=== PATIENT | female | born 2000 | race Caucasian/White ===

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

== ENCOUNTER 2024-02-06 22:15 | Emergency (ER) | payer MEDICAID, SELFPAY ==
[2024-02-06 22:15] VITALS: BP 148/96; PULSE 119; RESP 18; TEMP 36.7; O2SAT 100; BMI 20.7
[2024-02-06 23:00] VITALS: BP 141/75; PULSE 85; O2SAT 98
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
[2024-02-07 02:07] VITALS: BP 139/71; PULSE 81; RESP 18; TEMP 36.7; O2SAT 98
[2024-02-07] MEDS: RHO(D) IMMUNE GLOBULIN 1,500 UNIT SYRINGE IM (02:10)
== END 2024-02-07 02:15 | disposition home or self-care (01) ==
PROVIDERS: Emergency Provider Emergency Medicine
DX: O9A.311 Physical abuse complicating pregnancy, first trimester (principal); S39.91XA Unspecified injury of abdomen, initial encounter; Z3A.11 11 weeks gestation of pregnancy; Y07.12 Biological mother, perpetrator of maltreatment and neglect; O26.891 Other specified pregnancy related conditions, first trimester
CPT/HCPCS: 86900; 86901; 96372; 99285; J2790

== ENCOUNTER 2024-03-09 16:13 | Outpatient (CLI) | payer MEDICAID, SELFPAY ==
--- NOTE | 2024-03-09 16:17 | US_ITS ---
PROCEDURE: US OB >= 14 WEEKS FETUS CLINICAL INDICATION: dates and viability COMPARISON: No exams were available for comparison FINDINGS: Transabdominal sonographic images of the pelvis were obtained. From her established due date she is 16 weeks 4 days. Single viable intrauterine gestation. Cephalic position. Placenta: Posterior fundalplacenta grade 1. There is an average amount of fluid. survey performed and was unremarkable on the submitted images as in PACS. No discrete anomalies identified on survey imaging by technologist. Active fetus. Three-vessel cord with satisfactory umbilical cord insertion. 4- chamber heart noted. Survey of brain & ventricles Unremarkable. Cerebellum, thalamus, choroid plexus, cisterna magna appear normal. Face and neck survey unremarkable. Profile, nasion, appeared normal. Diaphragm and chest views unremarkable. Abdomen: Stomach and bladder noted and satisfactory. Spine: Not completely imaged Both arms and legs noted. Amniotic Fluid: Adequate. MVP 3.57 cm. Measurements: Average ultrasound age 17weeks 1day. Estimated due date by ultrasound age 1208/16/2024. Estimated weight 176g BPD = 17weeks 3days HC = 17weeks 0 days AC = 17weeks 0 days FL = 17weeks 0 days Growth Percentile= 66Percent Heart Rate = 144bpm HC/AC is 1.2 FL/BPD is 0.63 FL/AC is 0.21 IMPRESSION: 1. Viable fetus in the cephalic presentation with a posterior fundal placenta grade 1. 2. There appears to be an anterior contraction during the exam. 3. The fluid is within normal limits. MVP 3.57 cm. 4. Limited anatomical scan appears normal. 5. Suggest repeat complete anatomical scan scan in 4 weeks. 6. biometry is consistent with the dates. 7. heart rate is in the normal range at 144 BPM. Dictated by: Lance Mohan MD 03/10/2024 09:31 Lance Mohan MD in [place] 03/10/2024 09:31
[2024-03-09 17:43] LABS: Basophils # 0.1 K/mm3 (0-0.2); Basophils % 0.6 % (0.1-2.0); Eosinophils # 0.1 K/mm3 (0.0-0.4); Eosinophils % 0.8 % (0.1-12.0); Hematocrit 36.9 % (37.0-47.0); Hemoglobin 12.7 g/dL (12.2-16.2); Lymphocytes # 2.3 K/mm3 (0.7-4.5); Mean Corpuscular HGB Conc 34.6 g/dL (31.8-35.4); Mean Corpuscular Hemoglobin 31.9 pg (27.0-31.2); Mean Corpuscular Volume 92.3 fl (81-99); Mean Platelet Volume 7.8 fl (7.4-10.4); Monocytes # 0.5 K/mm3 (0.1-1.0); Monocytes % 4.4 % (1.7-9.3); Neutrophils # 7.7 K/mm3 (1.8-7.8); Neutrophils % 72.1 % (37.0-80.0); Platelet Count 317 K/mm3 (142-424); Red Cell Distribution Width 14.3 % (11.5-17.5); White Blood Count 10.6 K/mm3 (4.8-10.8)
[2024-03-10 13:29] LABS: HIV (1&2) Antibody Rapid NONREACTIVE (NONREACTIVE)
[2024-03-11 07:37] LABS: HCV Ab Non Reactive (Non Reactive); Hepatitis B Surface Antigen Negative (Negative)
[2024-03-11 08:21] LABS: Rubella Antibodies, IgG 1.97 index (Immune >0.99)
[2024-03-11 12:38] LABS: Rapid Plasma Reagin Ab Titer Non Reactive titer (NonRea<1:1)
== END 2024-03-09 23:59 | disposition home or self-care (01) ==
PROVIDERS: Visit Provider Obstetrics & Gynecology
DX: O09.32 Supervision of pregnancy with insufficient antenatal care, second trimester (principal); O09.292 Supervision of pregnancy with other poor reproductive or obstetric history, second trimester; Z3A.16 16 weeks gestation of pregnancy
CPT/HCPCS: 36415; 76805; 85025; 86593; 86762; 86850; 86870; 87086; 87340

== ENCOUNTER 2024-03-22 17:36 | Outpatient (CLI) | payer MEDICAID, SELFPAY ==
[2024-03-22 17:43] VITALS: BMI 25.0
[2024-03-22 17:50] VITALS: BP 128/74; PULSE 90; RESP 18; TEMP 36.9; O2SAT 97; BMI 25.0
--- NOTE | 2024-03-22 17:55 | US_ITS ---
PROCEDURE INFORMATION: Exam: US , Limited Exam date and time: 03/22/2024 6:32 PM Age: 23 years old Clinical indication: Lmp or gestational age (in weeks): 18w 3d; Antepartum complications; Decreased movements; Fetus 1; ; Additional info: Decreased movement TECHNIQUE: Imaging protocol: Real-time ultrasound of the maternal uterus with image documentation. Exam focused on the clinical indication. COMPARISON: US OB >= 14 WEEKS FETUS 03/09/2024 4:10 PM FINDINGS: Gestation: Single intrauterine gestation. heart rate: 120 bpm presentation and position: Cephalic. Placenta: Posterior location. Grade 1. No retroplacental hemorrhage. Amniotic fluid (Qualitative): Adequate amniotic fluid for age. BIOMETRY: Gestational age (AUA): 18 weeks 0 days Estimated weight: 281 g (88th percentile) Biparietal diameter (BPD): 4.15 cm (58th percentile) Head circumference (HC): 15.45 cm (41st percentile) Abdominal circumference (AC): 14.24 cm (83 percentile) Femur length (FL): 2.94 cm (68th percentile) MATERNAL: Cervix: Measures 3.4 cm in length. IMPRESSION: Single live intrauterine gestation measuring 18 weeks 0 days. No acute findings.
[2024-03-22 18:06] LABS: Microscopic, Urine URINE MICROSCOPIC (MICROSCOPIC)
[2024-03-22 18:23] LABS: Appearance,Urine CLEAR (Clear); Bilirubin,Urine Negative (Negative); Blood, Urine TRACE-I (Negative); Color,Urine YELLOW (Yellow); Glucose,Urine (UA) Negative (Negative); Ketones,Urine TRACE (Negative); Leukocyte Esterase,Urine TRACE (Negative); Nitrate,Urine Negative (Negative); Protein,Urine Negative (Negative); Urobilinogen,Urine 0.2 EU/dl (0.2)
[2024-03-22 18:43] LABS: Bacteria,Urine Trace /lpf; RBC,Urine Occasional #/hpf (0-3); WBC,Urine Occasional #/hpf (0-3)
[2024-03-22 18:51] LABS: Amphetamine/Metha Screen,Urine Negative ng/ml (<1000); Barbiturates Screen,Urine Negative ng/ml (<200)
[2024-03-22 18:52] LABS: Benzodiazepines Screen,Urine Negative ng/ml (<200)
[2024-03-22 18:53] LABS: Cannabinoid Screen,Urine Negative ng/ml (<50); Cocaine Screen,Urine Negative ng/ml (<300)
[2024-03-22 18:54] LABS: Methadone Screen,Urine Negative ng/ml (<300)
[2024-03-22 18:55] LABS: Opiate Screen,Urine Negative ng/ml (<300); Phencyclidine Screen,Urine Negative ng/ml (<25)
[2024-03-22 19:10] LABS: Fetal Membrane Rupture (Rapid) Negative (Negative)
== END 2024-03-22 19:45 | disposition home or self-care (01) ==
LOC: OBOUT 17:37 → OB 17:38
PROVIDERS: Visit Provider Obstetrics & Gynecology
DX: O42.912 Preterm premature rupture of membranes, unspecified as to length of time between rupture and onset of labor, second trimester (principal); O36.8320 Maternal care for abnormalities of the fetal heart rate or rhythm, second trimester, not applicable or unspecified; Z3A.18 18 weeks gestation of pregnancy
CPT/HCPCS: 76815; 80307; 81001; 84112

== ENCOUNTER 2024-04-12 15:42 | Outpatient (CLI) | payer MEDICAID, SELFPAY ==
--- NOTE | 2024-04-12 15:43 | US_ITS ---
PROCEDURE: US OB /MATERNAL DETAIL CLINICAL INDICATION: 20 wk OB US Complete COMPARISON: US US OB >= 14 WEEKS FETUS from 03/09/2024 US US OB LIMITED POSITION from 03/22/2024 FINDINGS: Transabdominal sonographic images of the pelvis were obtained. From her established due date she is 21 weeks 3 days. Single viable intrauterine gestation. Breech position. Placenta: Posteriorplacenta grade 1. There are several placental lakes. There is an average amount of fluid. The cervix appears satisfactory. Closed and measuring 3.2 cm in length. Complete survey performed and was unremarkable on the submitted images as in PACS. No discrete anomalies identified on survey imaging by technologist. Active fetus. Three-vessel cord with satisfactory umbilical cord insertion. 4- chamber heart noted. Situs, aortic arch, LVOT, RVOT, three-vessel view appear normal. Survey of brain & ventricles Unremarkable. Cerebellum, thalamus, choroid plexus, cisterna magna appear normal. Face and neck survey unremarkable. Profile, nasion, lips and nose appeared normal. Diaphragm and chest views unremarkable. Abdomen: Both kidneys noted and unremarkable. There is mild bilateral renal pelvis dilation measuring 3.6 mm and 2.9 mm. No further follow-up necessary. Stomach and bladder noted and satisfactory. Spine: Survey of the spine satisfactory with no anomalies identified nor imaged. Cervical, thoracic, lower spine appear normal. Both arms and legs noted. Amniotic Fluid: Adequate. MVP 5.14 cm. Measurements: Average ultrasound age 22weeks 1day. Estimated due date by ultrasound age 1208/15/2024. Estimated weight 453g BPD = 22weeks 3days HC = 22weeks 1day AC = 22weeks FL = 21weeks 4days Growth Percentile= 64 Heart Rate = 144bpm Cerebellum = 22weeks Humerus = 21weeks 4days HC/AC is 1.17 FL/BPD is 0.67 FL/AC is 0.21 IMPRESSION: 1. Viable fetus in the breech presentation with a posterior placenta grade 1. 2. The fluid is within normal limits. MVP 5.14 cm. 3. Anatomical scan appears normal. There is mild bilateral renal pelvis dilation less than 4 mm. 4. biometry is consistent with the dates. Dictated by: Lance Mohan MD 04/12/2024 16:41 aLnce Mohan MD in [place] 04/12/2024 16:41
== END 2024-04-12 23:59 | disposition home or self-care (01) ==
LOC: RAD 15:43
PROVIDERS: PCP Obstetrics & Gynecology; Visit Provider Obstetrics & Gynecology
DX: Z36.3 Encounter for antenatal screening for malformations (principal); O09.292 Supervision of pregnancy with other poor reproductive or obstetric history, second trimester; O09.32 Supervision of pregnancy with insufficient antenatal care, second trimester; Z3A.21 21 weeks gestation of pregnancy
CPT/HCPCS: 76811

== ENCOUNTER 2024-07-11 13:59 | Outpatient (CLI) | payer MEDICAID, SELFPAY ==
[2024-07-11 14:39] LABS: Albumin Level 3.5 g/dl (3.5-5.0); Chloride 107 mmol/L (98-107); Potassium 3.4 mmoL/L (3.5-5.1); Sodium 135 mmol/L (136-145)
[2024-07-11 14:40] LABS: Basophils % 0.4 % (0.1-2.0); Eosinophils # 0.1 K/mm3 (0.0-0.4); Eosinophils % 0.9 % (0.1-12.0); Hematocrit 33.4 % (37.0-47.0); Hemoglobin 11.5 g/dL (12.2-16.2); Lymphocytes # 2.1 K/mm3 (0.7-4.5); Lymphocytes % 26.6 % (10-50); Mean Corpuscular HGB Conc 34.3 g/dL (31.8-35.4); Mean Corpuscular Hemoglobin 29.3 pg (27.0-31.2); Mean Corpuscular Volume 85.4 fl (81-99); Mean Platelet Volume 7.7 fl (7.4-10.4); Monocytes # 0.4 K/mm3 (0.1-1.0); Monocytes % 5.1 % (1.7-9.3); Neutrophils # 5.4 K/mm3 (1.8-7.8); Neutrophils % 67.1 % (37.0-80.0); Platelet Count 291 K/mm3 (142-424); Red Blood Count 3.91 M/mm3 (4.20-5.40); Red Cell Distribution Width 13.9 % (11.5-17.5)
[2024-07-11 14:42] LABS: Alanine Aminotransferase 18 U/L (12-78); Albumin/Globulin Ratio 1.2 (1.1-1.8); Alkaline Phosphatase 118 U/L (38-126); Anion Gap 14.4 mEq/L (5-15); Aspartate Amino Transferase 25 U/L (14-36); Bilirubin,Total 0.6 mg/dl (0.2-1.3); Blood Urea Nitrogen 3 mg/dl (7-17); Calcium 8.7 mg/dl (8.4-10.2); Carbon Dioxide 17 mmol/L (22.0-30.0); Estimated Glomerular Filt Rate 154 ml/min (>60); GFR (African American) 187 ML/MIN (>60); Globulin 2.9 g/dL (1.3-3.2); Glucose 129 mg/dl (74-100); Total Protein,Serum 6.4 g/dl (6.3-8.2)
[2024-07-11 14:43] LABS: Magnesium 1.5 mg/dl (1.6-2.3)
[2024-07-12 15:08] LABS: RPR W/RFX Titers Nonreactive (Nonreactive)
== END 2024-07-11 23:59 | disposition home or self-care (01) ==
LOC: LAB 14:01
PROVIDERS: Visit Provider Obstetrics & Gynecology
DX: Z34.90 Encounter for supervision of normal pregnancy, unspecified, unspecified trimester (principal)
CPT/HCPCS: 36415; 80053; 83735; 85025; 86592

== ENCOUNTER 2024-07-19 14:54 | Outpatient (CLI) | payer MEDICAID, SELFPAY ==
--- NOTE | 2024-07-19 14:56 | US_ITS ---
PROCEDURE: US OB BIOPHYSICAL PROFILE CLINICAL INDICATION: LGA COMPARISON: US US OB >= 14 WEEKS FETUS from 03/09/2024 US US OB LIMITED POSITION from 03/22/2024 US US OB /MATERNAL DETAIL from 04/12/2024 FINDINGS: Transabdominal sonographic images of the uterus were obtained. From her established due date she is 35weeks 3days. The following parameters are obtained: Viable Fetus in the cephalic presentation with a posterior placenta grade 2. Average ultrasound age is 36weeks 2days Estimated weight 3,044g, 6 lb 11 oz Cervix measures 4.2 cm Measurements: heart Rate = 136bpm BPD = 35weeks 1day, 46 percentile HC = 36weeks 5days, 48 percentile AC = 38weeks 0 days, >98 percentile FL = 35weeks 1day, 36 percentile HC/AC is 0.95 FL/BPD is 0.79 FL/AC is 0.2 85 percentile Amniotic fluid index: 18.54cm, MVP 6.94 cm Qualitative AFV:2 Breathing movements: 2 Gross Body Movements: 2 Tone: 2 Biophysical profile score: 8 No obvious anomalies evident.Kidneys, profile, stomach, bladder, four-chamber heart, three-vessel cord appear normal. IMPRESSION: 1. Viable fetus in the cephalic presentation with a posterior placenta grade 2. 2. The fluid is within normal limits with an amniotic fluid index 18.54 cm, MVP 6.94 cm. 3. Biophysical profile is 8/8 with good breathing and movement seen. 4. Limited anatomical scan appears normal. 5. There has been good interval growth with the fetus currently 85 percentile. 6. The abdominal circumference is greater than 98 percentile and it is 2-1/2 weeks ahead. Dictated by: Lance Mohan MD 07/20/2024 04:28 Lance Mohan MD in [place] 07/20/2024 04:28
== END 2024-07-19 23:59 | disposition home or self-care (01) ==
LOC: RAD 14:56
PROVIDERS: PCP Obstetrics & Gynecology; Visit Provider Obstetrics & Gynecology
DX: O36.63X0 Maternal care for excessive fetal growth, third trimester, not applicable or unspecified (principal); O09.293 Supervision of pregnancy with other poor reproductive or obstetric history, third trimester; Z3A.35 35 weeks gestation of pregnancy
CPT/HCPCS: 76816; 76819

== ENCOUNTER 2024-07-20 16:25 | Outpatient (CLI) | payer MEDICAID, SELFPAY ==
[2024-07-20 18:42] LABS: Glucose 1 Hour 103 mg/dL (74-100)
== END 2024-07-20 23:59 | disposition home or self-care (01) ==
LOC: LAB.DROPOF 07-21 10:37
PROVIDERS: PCP Obstetrics & Gynecology; Visit Provider Obstetrics & Gynecology
DX: Z34.90 Encounter for supervision of normal pregnancy, unspecified, unspecified trimester (principal); Z3A.20 20 weeks gestation of pregnancy
CPT/HCPCS: 82947; 87086

== ENCOUNTER 2024-07-27 15:37 | Outpatient (CLI) | payer MEDICAID, SELFPAY ==
--- NOTE | 2024-07-27 15:39 | US_ITS ---
PROCEDURE: US OB BIOPHYSICAL PROFILE CLINICAL INDICATION: Decreased Movement COMPARISON: US POINT OF CARE US (ER ONLY) from 02/07/2024 US US OB >= 14 WEEKS FETUS from 03/09/2024 US US OB LIMITED POSITION from 03/22/2024 US US OB /MATERNAL DETAIL from 04/12/2024 US US OB BIOPHYSICAL PROFILE from 07/19/2024 FINDINGS: Transabdominal sonographic images of the uterus were obtained. From her established due date she is 36weeks 4days. The following parameters are obtained: Viable Fetus in the cephalic presentation with a posterior placenta grade 2. Measurements: heart Rate = 135bpm Amniotic fluid index: 9.4cm, MVP 2.54cm Qualitative AFV:2 Breathing movements: 2 Gross Body Movements: 2 Tone: 2 Biophysical profile score: 8 No obvious anomalies evident.Kidneys, stomach, bladder, four-chamber heart, three-vessel cord appear normal. IMPRESSION: 1. Viable fetus in the cephalic presentation with a posterior placenta grade 2. 2. The fluid is within normal limits with an amniotic fluid index 9.4 cm, MVP 2.54 cm. 3. Biophysical profile is 8 out of 8 with good breathing and movement seen. 4. Limited anatomical scan appears normal. 5. The bladder was distended throughout the entire exam. Dictated by: Lance Mohan MD 07/28/2024 03:27 Lance Mohan MD in [place] 07/28/2024 03:27
== END 2024-07-27 23:59 | disposition home or self-care (01) ==
LOC: RAD 15:37
PROVIDERS: Visit Provider Obstetrics & Gynecology
DX: O36.8130 Decreased fetal movements, third trimester, not applicable or unspecified (principal); O09.293 Supervision of pregnancy with other poor reproductive or obstetric history, third trimester; O09.33 Supervision of pregnancy with insufficient antenatal care, third trimester; Z3A.36 36 weeks gestation of pregnancy
CPT/HCPCS: 76819; 86403

== ENCOUNTER 2024-08-04 21:46 | Outpatient (CLI) | payer MEDICAID, SELFPAY ==
[2024-08-04 22:22] VITALS: BP 134/84; PULSE 92; RESP 18; TEMP 36.8; O2SAT 98; BMI 27.3
[2024-08-04 22:30] LABS: Microscopic, Urine URINE MICROSCOPIC (MICROSCOPIC)
[2024-08-04 23:53] LABS: Bilirubin,Urine Negative (Negative); Blood, Urine Negative (Negative); Color,Urine YELLOW (Yellow); Glucose,Urine (UA) Negative (Negative); Ketones,Urine Negative (Negative); Leukocyte Esterase,Urine 2+ (Negative); Nitrate,Urine Negative (Negative); Protein,Urine Negative (Negative); Urobilinogen,Urine 0.2 EU/dl (0.2)
[2024-08-04 23:54] LABS: Appearance,Urine Cloudy (Clear)
[2024-08-04 23:56] LABS: Bacteria,Urine 2+ /lpf
[2024-08-05 00:02] LABS: Amphetamine/Metha Screen,Urine Negative ng/ml (<1000); Barbiturates Screen,Urine Negative ng/ml (<200)
[2024-08-05 00:03] LABS: Benzodiazepines Screen,Urine Negative ng/ml (<200); Cannabinoid Screen,Urine Negative ng/ml (<50)
[2024-08-05 00:04] LABS: Cocaine Screen,Urine Negative ng/ml (<300)
[2024-08-05 00:05] LABS: Methadone Screen,Urine Negative ng/ml (<300); Opiate Screen,Urine Negative ng/ml (<300)
[2024-08-05 00:06] LABS: Phencyclidine Screen,Urine Negative ng/ml (<25)
[2024-08-05 00:14] LABS: POC Glucose,Bedside 72 (70-110)
[2024-08-05] MEDS: LACTATED RINGERS 1000ML 1,000 ML 999 ML IV (02:51)
[2024-08-05] MEDS: ACETAMINOPHEN 325MG TAB 650 MG PO (02:54)
== END 2024-08-05 08:06 | disposition home or self-care (01) ==
LOC: OBOUT 21:48 → OB 21:49
PROVIDERS: Visit Provider Obstetrics & Gynecology
DX: O60.03 Preterm labor without delivery, third trimester (principal); Z3A.37 37 weeks gestation of pregnancy
CPT/HCPCS: 80307; 81001; 82962; 87086; J7120

== ENCOUNTER 2024-08-12 17:32 | Outpatient (CLI) | payer MEDICAID, SELFPAY ==
[2024-08-12 17:35] VITALS: BMI 27.4
[2024-08-12 17:59] VITALS: BMI 27.4
[2024-08-12 17:59] LABS: Microscopic, Urine URINE MICROSCOPIC (MICROSCOPIC)
[2024-08-12 18:04] LABS: Appearance,Urine CLEAR (Clear); Bilirubin,Urine Negative (Negative); Blood, Urine Negative (Negative); Color,Urine YELLOW (Yellow); Glucose,Urine (UA) Negative (Negative); Ketones,Urine Negative (Negative); Leukocyte Esterase,Urine 1+ (Negative); Nitrate,Urine Negative (Negative); Protein,Urine Negative (Negative); Specific Gravity, Urine 1.015 (1.005-1.030); Urobilinogen,Urine 0.2 EU/dl (0.2)
[2024-08-12 18:13] LABS: Barbiturates Screen,Urine Negative ng/ml (<200)
[2024-08-12 18:14] LABS: Benzodiazepines Screen,Urine Negative ng/ml (<200)
[2024-08-12 18:15] VITALS: BP 133/88
[2024-08-12 18:15] LABS: Amphetamine/Metha Screen,Urine Negative ng/ml (<1000)
[2024-08-12 18:16] LABS: Cannabinoid Screen,Urine Negative ng/ml (<50)
[2024-08-12 18:17] LABS: Cocaine Screen,Urine Negative ng/ml (<300); Methadone Screen,Urine Negative ng/ml (<300)
[2024-08-12 18:18] LABS: Opiate Screen,Urine Negative ng/ml (<300); Phencyclidine Screen,Urine Negative ng/ml (<25)
[2024-08-12 18:41] LABS: Bacteria,Urine 3+ /lpf
[2024-08-12 18:45] VITALS: BP 125/78
[2024-08-12 19:00] VITALS: BP 144/83
[2024-08-12 19:30] VITALS: BP 105/78
[2024-08-12] MEDS: ACETAMINOPHEN 325MG TAB 650 MG PO (19:54)
== END 2024-08-12 20:00 | disposition home or self-care (01) ==
LOC: OBOUT 17:33 → OB 17:33
PROVIDERS: Visit Provider Obstetrics & Gynecology
DX: O60.03 Preterm labor without delivery, third trimester (principal); Z3A.38 38 weeks gestation of pregnancy
CPT/HCPCS: 80307; 81001; 87086; G0463

== ENCOUNTER 2024-08-15 22:13 | Inpatient (IN) | payer MEDICAID, SELFPAY ==
[2024-08-15 22:20] VITALS: BMI 27.4
[2024-08-15 22:29] VITALS: BP 140/75; PULSE 82; RESP 17; TEMP 36.8; O2SAT 99
[2024-08-15 22:34] VITALS: BMI 27.6
[2024-08-15 23:06] LABS: Basophils # 0.1 K/mm3 (0-0.2); Basophils % 0.4 % (0.1-2.0); Eosinophils # 0.1 K/mm3 (0.0-0.4); Eosinophils % 0.8 % (0.1-12.0); Hematocrit 29.9 % (37.0-47.0); Hemoglobin 9.9 g/dL (12.2-16.2); Lymphocytes # 2.7 K/mm3 (0.7-4.5); Lymphocytes % 22.3 % (10-50); Mean Corpuscular HGB Conc 33.1 g/dL (31.8-35.4); Mean Corpuscular Hemoglobin 27.3 pg (27.0-31.2); Mean Corpuscular Volume 82.4 fl (81-99); Monocytes # 0.9 K/mm3 (0.1-1.0); Monocytes % 7.5 % (1.7-9.3); Neutrophils # 8.1 K/mm3 (1.8-7.8); Neutrophils % 68.2 % (37.0-80.0); Platelet Count 282 K/mm3 (142-424); Red Blood Count 3.63 M/mm3 (4.20-5.40); Red Cell Distribution Width 13.1 % (11.5-17.5); White Blood Count 11.9 K/mm3 (4.8-10.8)
[2024-08-15 23:08] LABS: Albumin Level 3.4 g/dl (3.5-5.0); Chloride 108 mmol/L (98-107); Sodium 133 mmol/L (136-145)
[2024-08-15 23:09] LABS: Potassium 3.5 mmoL/L (3.5-5.1)
[2024-08-15 23:11] LABS: Alanine Aminotransferase 15 U/L (12-78); Albumin/Globulin Ratio 1.3 (1.1-1.8); Alkaline Phosphatase 156 U/L (38-126); Anion Gap 9.5 mEq/L (5-15); Aspartate Amino Transferase 24 U/L (14-36); Bilirubin,Total 0.4 mg/dl (0.2-1.3); Blood Urea Nitrogen 5 mg/dl (7-17); Carbon Dioxide 19 mmol/L (22.0-30.0); Creatinine Clearance Estimated 199 mL/min (50-200); Estimated Glomerular Filt Rate 200 ml/min (>60); GFR (African American) 242 ML/MIN (>60); Globulin 2.6 g/dL (1.3-3.2); Glucose 87 mg/dl (74-100)
[2024-08-15 23:12] LABS: Calcium 8.6 mg/dl (8.4-10.2)
[2024-08-15] MEDS: ONDANSETRON 4MG/2ML VIAL 4 MG IV (23:26)
[2024-08-15] MEDS: ACETAMINOPHEN 325MG TAB 650 MG PO (23:28)
[2024-08-16] MEDS: LACTATED RINGERS 1000ML 1,000 ML 250 ML IV (03:44)
[2024-08-16] MEDS: OXYTOCIN/RINGERS LACTATE 30 UNITS/500 ML BAG IV (03:44)
[2024-08-16] MEDS: DEXTROSE 5%-LACTATED RINGERS 1,000 ML 125 ML IV (03:50)
--- NOTE | 2024-08-16 05:51 | EXP.ANES.CKL ---
[facility] Disclaimer: The information contained in this section may have been updated after the patient was seen, as this information can be updated by other users. Medical History Hx of reduction of open dislocation Hx of anxiety disorder History of depression Surgical History History of surgery on arm Family History Other Cancer Diabetes Hypertension Social History Smoking Status: Never smoker alcohol intake: never substance use type: denies use current occupational status: unemployed Travel in the last 8 weeks: None [facility] Anesthesia Checklist Patient Identification Patient Identification: Arm Band Structural Data Admitted From: Home Planned Operative Procedure/s: Labor Epidural Consent for Planned Operative Procedure(s) Verified: Yes Verified Documents: Surgical Consent and History and Physical NPO Status Verified Time NPO: 00:00 Additional verifications Anesthesia Reactions: No Neurological Assessment Level of Consciousness: Awake, Alert and Appropriate Anesthesia Plan Anesthesia Risk discussed: Yes Anesthesia Plan: Verified ASA Class: II Anesthesia Type: Epidural
--- NOTE | 2024-08-16 06:08 | EXP.HP ---
History of Present Illness *Admission Date: 08/15/24 *Reason for visit:: Labor *History of present illness: Alma Remy is a 24-year-old who presented at 39w1d gestation with a migraine. She was scheduled for an elective IOL at 39w2d. Her has been uncomplicated. On presentation patient endorsed good movement and denies any leakage of fluid or vaginal bleeding. A negative, antibody positive: Pending antibody, rubella immune, hepatitis B negative, hepatitis C negative, RPR negative, HIV negative 1 hour GTT: 103 GBS negative PFSH PFS Disclaimer: The information contained in this section may have been updated after the patient was seen, as this information can be updated by other users. Medical History Hx of reduction of open dislocation Hx of anxiety disorder History of depression Surgical History History of surgery on arm Family History Other Cancer Diabetes Hypertension Social History (Updated 08/16/24 @ 05:52 by Spencer Dunaway CRNA) Smoking Status: Never smoker alcohol intake: never substance use type: denies use current occupational status: unemployed Travel in the last 8 weeks: None Have you lived/traveled outside [place] in past 30 days?: No Contact w/someone who lives/traveled outside US past 30 days?: No Exposure to someone with infectious disease in past 14 days?: No Do you have a fever (greater than 100.4 F or 38 C)?: No Have you tested positive for COVID-19: No Exposed to someone with COVID-19 in past 14 days?: No Do you have a sore throat?: No Do you have a cough?: No Do you have any weakness?: No Do you have any diarrhea?: No Are you experiencing any unusual bleeding?: No Do you have any muscle aches/pain?: No Do you have any abdominal pain?: No Are you experiencing loss of taste or smell?: No Other Medical History Have you received the Flu Vaccine for this season: No Have you received the Pneumonia Vaccine: No Review of Systems Review of Systems Review of systems (narrative): Review of Systems Constitutional: Denies fever, chills, and sweats Eyes: Denies vision change/ pain Respiratory: Denies cough and shortness of breath Cardiovascular: Denies chest pain and lightheadedness Gastrointestinal: Admits abdominal pain with contractions. Denies nausea, vomiting. Genitourinary: Denies dysuria and incontinence Musculoskeletal: Denies shoulder pain and back pain Neurological: Denies change in speech or headaches Meds Home Medications and Allergies Home Medications ?Medication ?Instructions ?Recorded ?Confirmed ?Type vits no.126-ferrous fum 1 tab PO DAILY #30 tabs 04/07/24 08/12/24 Rx 28 mg iron-folic acid 800 mcg tablet (Classic ) New Prescriptions to Start Prescriptions: Allergies Allergy/AdvReac Type Severity Reaction Status Date / Time venom-honey bee (BEE VENOM Allergy Unknown Verified 08/12/24 15:23 (HONEY BEE)) venom-wasp (WASP VENOM) Allergy Unknown Verified 08/12/24 15:23 Exam Data for Last 24 hours Vital signs and Labs for Last 24 Hours: Temp Pulse Resp BP Pulse Ox O2 Del Method 98.2 F 82 17 140/75 99 Room Air 08/15/24 22:29 08/15/24 22:29 08/15/24 22:29 08/15/24 22:29 08/15/24 22:29 08/15/24 22:29 Laboratory Results - last 24 hr 08/15/24 22:50: WBC 11.9 H, RBC 3.63 L, Hgb 9.9 L, Hct 29.9 L, MCV 82.4, MCH 27.3, MCHC 33.1, RDW 13.1, Plt Count 282, MPV 10.0, Neut % (Auto) 68.2, Lymph % (Auto) 22.3, Taliaferro % (Auto) 7.5, Eos % (Auto) 0.8, Baso % (Auto) 0.4, Neut # (Auto) 8.1 H, Lymph # (Auto) 2.7, Taliaferro # (Auto) 0.9, Eos # (Auto) 0.1, Baso # (Auto) 0.1, Sodium 133 L, Potassium 3.5, Chloride 108 H, Carbon Dioxide 19 L, Anion Gap 9.5, BUN 5 L, Creatinine 0.40 L, Estimated Creat Clear 199, Estimated GFR 200, Est GFR ( Amer) 242, Glucose 87, Calcium 8.6, Total Bilirubin 0.4, AST 24, ALT 15, Alkaline Phosphatase 156 H, Total Protein 6.0 L, Albumin 3.4 L, Globulin 2.6, Albumin/Globulin Ratio 1.3, Blood Type A Negative, Antibody Screen Positive I & O for Last 24 hours: Intake & Output 08/13/24 08/14/24 08/15/24 08/16/24 23:59 23:59 23:59 23:59 Weight 363 lb 12.203 oz Narrative: General: patient is alert oriented in no acute distress and responds appropriately to questions. HEENT: NCAT, EOMI, moist mucous membranes, neck supple with full ROM Cardiovascular: RRR +S1/S2, no murmurs or rubs Pulmonary: Clear to auscultation bilaterally, nonlabored breathing, symmetric chest rise Abdominal: Gravid abdomen appropriate for gestation. No guarding, rebound, or tenderness noted. Extremities: trace edema, no tenderness or cyanosis noted Skin: Normal turgor, intact, warm. Negative for erythema, pallor, petechia, or lesions Neurologic: Negative for sensory or motor deficit Psychiatric: Normal affect, normal thought process, good judgment and insight, no depression or anxious mood appreciated. *Routine HEENT Exam Head: Present normocephalic and atraumatic Eye: Present EOMI, PERRL and normal accommodation; Absent conjunctival icterus, scleral injection, nystagmus or exophthalmos ENT: Present mucous membranes moist *Routine Respiratory Exam Respiratory: Present CTA bilaterally, normal respiratory effort, able to speak in complete sentences and symmetric chest movement; Absent accessory muscle use, decreased breath sounds, rales, respiratory distress, wheezes, distant breath sounds or diminished air movement *Routine Cardiovascular Exam Cardiovascular: Present RRR, Normal S1 and Normal S2; Absent murmur or gallop *Routine Abdominal Exam Abdominal: Present soft and normoactive bowel sounds; Absent tenderness, distended, rebound or guarding *Routine Rectal Exam Rectal:: deferred *Routine Genitalia Exam Genitalia:: normal female Assessment and Plan *Assessment and plan (1) Hx of preeclampsia, prior , currently : Status: Acute Category: Medical Code(s): O09.299 - Supervision of with other poor reproductive or obstetric history, unspecified trimester (2) : Status: Acute Qualifiers: Weeks of gestation: 20 weeks Qualified Code(s): Z3A.20 - 20 weeks gestation of Category: Medical Code(s): Z34.90 - Encounter for supervision of normal , unspecified, unspecified trimester Plan - Monitor vitals - Admit to L&D for induction of labor - Plan for augmentation of labor with AROM and pitocin if required. - External FHR and TOCO monitor - GBS neg - Plan for epidural anesthesia - Anticipate vaginal delivery of female #Anemia, present on admission. likely chronic -Normocytic -Blood type: A- -Hemoglobin: 9.9, Plt: 282 #Migraine on admission #Hxof preeclampsia -Continue close monitoring -Migraine resolved this morning Called in for evaluation at 0545, AROM completed- thick meconium. 1. Cat one strip reviewed.
[2024-08-16 06:15] LABS: Microscopic, Urine URINE MICROSCOPIC (MICROSCOPIC)
[2024-08-16 06:16] LABS: Appearance,Urine CLEAR (Clear); Bilirubin,Urine Negative (Negative); Blood, Urine Negative (Negative); Color,Urine YELLOW (Yellow); Glucose,Urine (UA) Negative (Negative); Ketones,Urine Negative (Negative); Leukocyte Esterase,Urine 3+ (Negative); Nitrate,Urine Negative (Negative); Protein,Urine Negative (Negative); Urobilinogen,Urine 0.2 EU/dl (0.2)
[2024-08-16 06:24] LABS: Bacteria,Urine 1+ /lpf; WBC,Urine 20-50 #/hpf (0-3)
[2024-08-16 06:25] LABS: Mucus,Urine Trace /lpf
[2024-08-16 06:27] LABS: Barbiturates Screen,Urine Negative ng/ml (<200)
[2024-08-16 06:28] LABS: Amphetamine/Metha Screen,Urine Negative ng/ml (<1000); Benzodiazepines Screen,Urine Negative ng/ml (<200)
[2024-08-16 06:29] LABS: Cannabinoid Screen,Urine Negative ng/ml (<50); Cocaine Screen,Urine Negative ng/ml (<300)
[2024-08-16 06:30] LABS: Methadone Screen,Urine Negative ng/ml (<300)
[2024-08-16 06:31] LABS: Opiate Screen,Urine Negative ng/ml (<300); Phencyclidine Screen,Urine Negative ng/ml (<25)
--- NOTE | 2024-08-16 06:58 | EXP.DN ---
Delivery Note Delivery Date:: 08/16/24 Delivery Time:: 06:28 Anesthesia Type: Epidural Was labor medically induced?: Yes Induction method: per pitocin protocol Gestational age (weeks): 39 delivered prior to 39 weeks?: No Infant Gender: Female at 1 minute: 7 at 5 minutes: 8 Delivery Procedure:: Preoperative diagnosis: 1. at 39 completed this weeks gestation, vertex 2. Rh negative 3. GBS negative 4. Hx of preeclampsia Postoperative diagnosis: 1. at 39 completed this weeks gestation, vertex 2. Rh negative 3. GBS negative 4. Hx of preeclampsia EBL: 300mL Specimen: 1. Cord blood Findings: 1. Liveborn viable female . Apgars 7/8 at 1 and 5 minutes respectively. Weight pending at time of dictation 2. 2nd degree midline perineal laceration Complications: None Procedure: Nonoperative spontaneous vaginal delivery Alma Remy is a 24-year-old who presented to L&D with a severe migraine and was admitted. Her migraine resolved and she was scheduled for an elective IOL this morning so she was admitted and Pitocin was started. She only required a max rate of 3 for pitocin and tolerated labor well. She received an epidural for anesthesia. Patient had artificial rupture of membranes revealing meconium stained fluid. She progressed to complete. The infant was noted to be in the direct OA position. With effective maternal pushing there was a nonoperative spontaneous vaginal delivery at 0628. There was a nuchal cord x1 and a body cord was that was reduced following delivery. The anterior right shoulder delivered, followed by the posterior shoulder without dystocia. The body and lower extremities delivered without difficulty. The was bulb suctioned and was crying following delivery. The was placed on the maternal abdomen and greater than one minute was appreciated for delayed cord clamping. The umbilical cord was doubly clamped and cut. Cord blood was collected and sent for routine testing. The placenta delivered with cord traction and suprapubic contertraction. Pitocin was started. The uterus was firm and bleeding was minimal. The perineum, vaginal fischer, cervix, and paraurethral area were inspected thoroughly. There was a second-degree midline perineal laceration. 1% Lidocaine, 10ml, was injected during the repair due to patient discomfort. The laceration was repaired in the usual fashion using 2-0 Vicryl suture. The laceration was hemostatic. The cervix and vaginal fischer were inspected and noted to be hemostatic. This concluded the delivery. The patient was counseled regarding the events of the delivery and repair. The patient tolerated the delivery well. All counts were correct by nursing. Mother and infant were doing well and bonding upon my leaving the delivery room. Laceration:: vaginal Placental Delivery Description: Spontaneous
[2024-08-16] MEDS: OXYTOCIN/RINGERS LACTATE 30 UNITS/500 ML BAG 40 UNITS IV (07:00)
[2024-08-16 08:08] VITALS: BP 128/60; PULSE 86; RESP 18; TEMP 36.8; O2SAT 98
[2024-08-16] MEDS: IBUPROFEN 400 MG TABLET 800 MG PO ×2 (08:30→23:14)
[2024-08-16] MEDS: ACETAMINOPHEN 500MG TAB 1000 MG PO ×2 (08:30→18:07)
[2024-08-16] MEDS: WITCH HAZEL 40 PADS/BOX 1 EACH TP (11:01)
[2024-08-16] MEDS: BENZOCAINE-MENTHOL SPRAY 56GM CAN TP (11:02)
[2024-08-16 16:23] VITALS: BP 130/76; PULSE 82; RESP 16; TEMP 36.7; O2SAT 98
[2024-08-16] MEDS: PRENATAL MULTIVITAMIN W/IRON 1 EACH PO (16:34)
[2024-08-16 20:27] VITALS: BP 131/76; PULSE 91; RESP 18; TEMP 36.7; O2SAT 99
[2024-08-17] MEDS: ACETAMINOPHEN 500MG TAB 1000 MG PO (00:55)
[2024-08-17] MEDS: SENNA 8.6MG TABLET 8.6 MG PO (00:55)
[2024-08-17 04:29] VITALS: BP 122/64; PULSE 87; RESP 15; TEMP 36.8; O2SAT 98
[2024-08-17 08:38] LABS: Hematocrit 27.8 % (37.0-47.0)
--- NOTE | 2024-08-17 13:22 | EXP.DC.SUM ---
General Admission date:: 08/15/24 Discharge date: 08/17/24 HPI HPI HPI: PPD # 1 s/p Feeling well. Pain controlled. Formula feeding. Lochia is appropriate. Voiding without difficulty and passing flatus. Tolerating regular diet. Denies fever/chills, chest pain and shortness of breath. No headaches, vision changes, lightheadedness/dizziness. No lower extremity swelling. Ambulating well ad efren. Hospital Course Hospital Course Hospital Course: Ms Alma Remy is a 24-year-old who presented at 39w1d gestation with a migraine. She was scheduled for an elective IOL at 39w2d. Her has been uncomplicated. On presentation patient endorsed good movement and denies any leakage of fluid or vaginal bleeding. She underwent induction of labor as scheduled with Pitocin. She had a normal spontaneous vaginal delivery on 08/16/24 at 0628. She delivered a live female baby, Kristen, weighing 8 lb 9 oz. Apgars 7/8 at 1 and 5 minutes respectively. EBL 300 mL. She did well . Pain controlled. Formula feeding. Light lochia. Voiding without difficulty and passing flatus. Tolerating regular diet. Denies fever/chills, chest pain and shortness of breath. No headaches, dizziness/lightheadedness or vision changes. Vital signs stable, afebrile. Heart regular rate and rhythm. Lungs clear to auscultation. Abdomen soft, nontender. No lower extremity swelling. Ambulating well ad efren. Normal hospital course. She was discharged to home on PPD # 1 with instructions to follow-up in the office in 2 weeks or sooner if needed. Exam Data for Last 24 hours Vital signs and Labs for Last 24 Hours: Temp Pulse Resp BP Pulse Ox O2 Del Method 98.2 F 87 15 122/64 98 Room Air 08/17/24 04:29 08/17/24 04:29 08/17/24 04:29 08/17/24 04:08/17/24 04:08/17/24 04:29 Laboratory Results - last 24 hr 08/17/24 06:45: Hgb 9.0 L, Hct 27.8 L I & O for Last 24 hours: Intake & Output 08/14/24 08/15/24 08/16/24 08/17/24 23:59 23:59 23:59 23:59 Weight 165 lb 12.203 oz Constitutional Constitutional: no acute distress and cooperative *Routine HEENT Exam Head: Present normocephalic and atraumatic Eye: Absent conjunctivae pink ENT: Present mucous membranes moist *Routine Neck Exam Neck: Present full ROM *Routine Respiratory Exam Respiratory: Present CTA bilaterally and normal respiratory effort *Routine Cardiovascular Exam Cardiovascular: Present RRR *Routine Abdominal Exam Abdominal: Present soft; Absent tenderness or distended Comments: Uterine fundus firm and below umbilicus *Routine Rectal Exam Patient deferred: visual exam *Routine Exam Patient deferred: external exam *Routine Extremities Exam Extremities: Present full ROM; Absent edema or calf tenderness *Routine Neurological Exam Neurological: Present alert, moving all extremities and normal speech Routine Psychiatric Exam Psychiatric: Present normal affect and cooperative Results Data Completed and Pending Labs on day of discharge: Labs from last 24 hours 08/17/24 06:45 Hgb 9.0 L Hct 27.8 L DS: Diagnosis Discharge Diagnosis (1) Status post normal vaginal delivery: Status: Acute (2) Encounter for induction of labor: Status: Acute Code(s): Z34.90 - Encounter for supervision of normal , unspecified, unspecified trimester (3) Hx of preeclampsia, prior , currently : Status: Acute Code(s): O09.299 - Supervision of with other poor reproductive or obstetric history, unspecified trimester (4) : Status: Acute Code(s): Z34.90 - Encounter for supervision of normal , unspecified, unspecified trimester Qualifiers: Weeks of gestation: 20 weeks Qualified Code(s): Z3A.20 - 20 weeks gestation of (5) Late care: Status: Acute Code(s): O09.30 - Supervision of with insufficient care, unspecified trimester (6) Acute on chronic blood loss anemia: Status: Acute Code(s): D62 - Acute posthemorrhagic anemia Meds Home Medications and Allergies Home Medications ?Medication ?Instructions ?Recorded ?Confirmed ?Type ibuprofen 800 mg tablet 800 mg PO Q8H PRN pain #20 tabs 08/17/24 Rx New Prescriptions to Start Prescriptions: ibuprofen Milagros Greenberg Allergies Allergy/AdvReac Type Severity Reaction Status Date / Time venom-honey bee (BEE VENOM Allergy Unknown Verified 08/12/24 15:23 (HONEY BEE)) venom-wasp (WASP VENOM) Allergy Unknown Verified 08/12/24 15:23 Discharge Plan Disposition Patient Disposition: Home, Self-Care Condition: Good Discharge Order Discharge Orders: Discharge Order (Routine); Ordered 08/17/24 Ordered By: Milagros Greenberg Follow up Plan Follow up with: Jil Preston DO [Staff Physician] - 2 weeks Prescriptions/Medication Reconciliation: New ibuprofen 800 mg tablet 800 mg PO Q8H PRN (Reason: pain) Qty: 20 0RF Discontinued Classic 28 mg iron- 800 mcg tablet 1 tab PO DAILY Qty: 30 11RF Problem Reconciliation Problems Reviewed?: Yes Patient Discharge Instructions ACTIVITY: Limited activity DIET: continue same diet and regular diet Additional Instructions: Congratulations!! Discharge: 1. Take 800 mg Ibuprofen every 8 hours as needed for pain. You can also take 500-1000 mg of Tylenol in between doses, every 6-8 hours. 2. Nothing in the vagina for 6 weeks - no intercourse, douching or tampons. No tub baths/hot tubs or swimming pools 3. Reasons to return to L&D or call On-Call doctor - fever (greater than 100.4) - heavy vaginal bleeding (soaking through 1 pad in less than 2 hours) - vaginal discharge (malodorous and/or purulent) - severe headaches not resolved by medication or rest and leg tenderness/edema 4. depression/blues - Normal to feel anxious/overwhelmed for first 2 weeks - Talk to your doctor if: severe anxiety, trouble bonding with baby, withdrawing from other family members, thoughts of harming yourself or others Milagros Greenberg DO [facility] [phone] Print Language: Georgian Providers Primary Care Provider: Provider,Referral Admit Provider: Milagros Greenberg Attending Provider: Jil Preston
== END 2024-08-17 20:38 | disposition home or self-care (01) | DRG 807 ==
PROVIDERS: Admitting Provider Obstetrics & Gynecology; Visit Provider Obstetrics & Gynecology
DX: O69.81X0 Labor and delivery complicated by cord around neck, without compression, not applicable or unspecified (principal); Z37.0 Single live birth; Z3A.39 39 weeks gestation of pregnancy; O70.1 Second degree perineal laceration during delivery; O75.89 Other specified complications of labor and delivery; G43.909 Migraine, unspecified, not intractable, without status migrainosus
CPT/HCPCS: 59409; 59025; 80053; 80307; 81001; 85014; 85018; 85025; 86850; 86870; 87086; 94761; G0283; J2405; J7120